=== PATIENT | female | born 1970 | race Caucasian/White ===

== ENCOUNTER 2019-05-14 00:20 | Emergency (ER) | payer MEDICAID ==
--- NOTE | 2019-05-14 00:37 | EDM.PDOC ---
ED HPI GENERAL MEDICAL PROBLEM - General Chief Complaint: Lower Extremity Injury/Pain Stated Complaint: Dizziness, fall, left hip pain Time Seen by Provider: 05/14/19 00:25 Source of Information: Reports: Patient, EMS History Limitations: Reports: No Limitations - History of Present Illness INITIAL COMMENTS - FREE TEXT/NARRATIVE: Patient states she was [place] felt a little dizzy miss a step falling landing on her left hip EMS was called to the scene. Patient states she could not get up with extreme hip pain 9 out of 10 sharp and stabbing. She denies any head injury LOC neck pain pelvic pain no numbness no tingling lightheadedness or chest pain shortness of breath no other complaints at this time. States she was traveling back To [place] Patient has a history of diabetes and A. fib hypertension Onset: Sudden Duration: Minutes: Location: Reports: Lower Extremity, Left Quality: Reports: Stabbing, Throbbing Severity: Severe Improves with: Reports: Rest Worsens with: Reports: Movement Left hip Pain Score (Numeric/FACES): 9 - Related Data Allergies Allergy/AdvReac Type Severity Reaction Status Date / Time ibuprofen Allergy Rash Verified 05/14/19 01:58 Penicillins Allergy Rash Verified 05/14/19 01:58 Home Meds: Home Meds metFORMIN HCl [Metformin HCl] 500 mg PO BID 05/14/19 [History] Review of Systems - Review of Systems Review Of Systems: See Below Constitutional: Reports: No Symptoms Eyes: Reports: No Symptoms Ears: Reports: No Symptoms Nose: Reports: No Symptoms Mouth/Throat: Reports: No Symptoms Respiratory: Reports: No Symptoms Cardiovascular: Denies: Chest Pain, Edema, Irregular Heart Rate, Lightheadedness , Palpitations, Syncope GI/Abdominal: Reports: No Symptoms Genitourinary: Reports: No Symptoms Musculoskeletal: Reports: Other (Left hip) Skin: Reports: No Symptoms Neurological: Reports: Dizziness (had a few sec dizziness when got up out of her seat then stepped down out of the bus ). Denies: Confusion, Headache, Numbness, Paresthesia, Tingling, Trouble Speaking, Difficulty Walking, Weakness Psychiatric: Reports: No Symptoms ED EXAM, GENERAL - Physical Exam Exam: See Below Exam Limited By: No Limitations General Appearance: Alert, WD/WN, No Apparent Distress Eye Exam: Bilateral Eye: EOMI, PERRL Ears: Normal External Exam, Normal Canal, Hearing Grossly Normal, Normal TMs Nose: Normal Inspection, Normal Mucosa, No Blood Throat/Mouth: Normal Inspection, Normal Lips, Normal Teeth, Normal Gums, Normal Oropharynx, Normal Voice, No Airway Compromise Head: Atraumatic, Normocephalic Neck: Normal Inspection, Supple, Non-Tender, Full Range of Motion, Other (No midline tenderness palpation full range of motion no distracting injury patient cleared via [facility]) Respiratory/Chest: No Respiratory Distress, Lungs Clear, Normal Breath Sounds, No Accessory Muscle Use. No: Respiratory Distress Cardiovascular: Normal Peripheral Pulses, Regular Rate, Rhythm, No Edema, No JVD GI/Abdominal: Normal Bowel Sounds, Soft, Non-Tender, No Organomegaly, Pelvis Stable, Other (Patient has tenderness to palpation on lateral compression of the hip over the trochanter area and with compressions of the pelvis no tenderness to palpation over the femur) Back Exam: Normal Inspection, Full Range of Motion Extremities: Normal Inspection, No Pedal Edema (Patient is neurovascularly intact with a positive dorsalis pedis posterior tibialis equal Refill she has equal soft touch sensation noted tenderness palpation over the foot and ankle tibia-fibula knee femur there is no edema noted over the femur patient refuses to move the left leg at the area of the hip secondary to pain), Normal Capillary Refill. No: Normal Range of Motion, Non-Tender Neurological: Alert, Oriented, CN II-XII Intact, Normal Cognition, No Motor/ Sensory Deficits Psychiatric: Normal Affect, Normal Mood Skin Exam: Warm, Dry, Intact, Normal Color, No Rash Course - Vital Signs Text/Narrative:: x-ray left hip questionable ramus fracture new versus old patient recheck states pain is much better she is actively Txt on the phone no acute disstress CT scan of the pelvis no acute findings patient is able to bear weight with a walker Patient is okay with being discharged Last Recorded V/S: Last Vital Signs Temp 36.8 C 05/14/19 00:25 Pulse 104 H 05/14/19 00:25 Resp 20 05/14/19 00:25 BP 144/100 H 05/14/19 00:25 Pulse Ox 92 L 05/14/19 00:25 - Orders/Labs/Meds Orders: Active Orders 24 hr Category Date Time Status Hip Min 2V or 3V Lt [CR] Stat Exams 05/14/19 00:31 Ordered Pelvis wo Cont [CT] Stat Exams 05/14/19 01:28 Ordered Meds: Medications Discontinued Medications Generic Name Dose Route Start Last Admin Trade Name Nilesh PRCharbel Reason Stop Dose Admin Hydromorphone HCl 1 mg 05/14/19 01:29 05/14/19 01:32 Dilaudid IVPUSH 05/14/19 01:30 1 mg ONETIME ONE Administration Ondansetron HCl 8 mg/ Sodium 104 mls @ 400 mls/hr 05/14/19 01:39 Chloride IV 05/14/19 01:54 ONETIME ONE Morphine Sulfate 2 mg 05/14/19 00:43 05/14/19 01:15 Morphine IVPUSH 05/14/19 00:44 2 mg ONETIME ONE Administration Ondansetron HCl 4 mg 05/14/19 00:44 05/14/19 01:05 Zofran IVPUSH 05/14/19 00:45 4 mg ONETIME ONE Administration Departure - Departure Time of Disposition: 02:20 Disposition: Home, Self-Care 01 Condition: Good Clinical Impression: Acute pain of left hip - Discharge Information *PRESCRIPTION DRUG MONITORING PROGRAM REVIEWED*: No *COPY OF PRESCRIPTION DRUG MONITORING REPORT IN PATIENT SOFÍA: No Instructions: Hip Pain Referrals: PCP,Unobtain [Primary Care Provider] - Forms: ED Department Discharge Additional Instructions: Apply ice to the area as tolerated 30-45 minutes on 30-45 minutes off you may take Tylenol Motrin [id number] as needed follow directions on the bottle or box Return to the emergency room if anything changes or gets worse - Problem List & Annotations (1) Acute pain of left hip SNOMED Code(s): 92964368 Code(s): M25.552 - PAIN IN LEFT HIP Status: Acute Current Visit: Yes - My Orders Last 24 Hours: My Active Orders 05/14/19 00:31 Hip Min 2V or 3V Lt [CR] Stat 05/14/19 01:28 Pelvis wo Cont [CT] Stat - Assessment/Plan Last 24 Hours: My Active Orders 05/14/19 00:31 Hip Min 2V or 3V Lt [CR] Stat 05/14/19 01:28 Pelvis wo Cont [CT] Stat
[2019-05-14] MEDS ORDERED: Morphine 2 MG/ML Syringe IVPUSH ONE (00:43)
[2019-05-14] MEDS ORDERED: Ondansetron 4 MG/2 ML SDV IVPUSH ONE (00:44)
[2019-05-14] MEDS ORDERED: HYDROmorphone 1 MG/ML Syringe IVPUSH ONE (01:29)
[2019-05-14] MEDS ORDERED: Ondansetron 8 MG in Sodium Chloride 0.9% 100 ML IV ONE (01:39)
--- NOTE | 2019-05-14 07:43 | CR ---
[id number] RAD/RAD Hip Left 2-3V EXAM: LEFT HIP 2 VIEWS INDICATION: Trauma with left hip pain. COMPARISON: None. DISCUSSION: This examination is limited by soft tissue attenuation. No fracture or dislocation is identified. IMPRESSION: 1. Negative limited examination. Teto Rosario MD 05/14/19 0740 Thank you for allowing us to participate in the care of your patient.
--- NOTE | 2019-05-14 08:22 | CT ---
[id number] CT/CT Pelvis WO IV EXAM: CT Pelvis WO IV INDICATION: Trauma, left hip pain and possible ramus fracture. COMPARISON: Radiograph same date. FINDINGS: Motion artifact mildly limits this assessment. No fracture or dislocation is identified. Mild subcutaneous edema in the dependent gluteal tissues bilaterally in the proximal left thigh. Intrauterine device within the endometrial canal. Mild distention of the bladder. Degenerative changes in the lower lumbar spine. Grade 1 L4-L5 spondylolisthesis. IMPRESSION: 1. No acute fracture or dislocation. Teto Rosario MD 05/14/19 0819 Thank you for allowing us to participate in the care of your patient.
== END 2019-05-14 02:48 | disposition home or self-care (01) ==
LOC: VM.ED 00:20
DX: M25.552 Pain in left hip (principal); Z88.0 Allergy status to penicillin; Z88.6 Allergy status to analgesic agent; Z79.84 Long term (current) use of oral hypoglycemic drugs
CPT/HCPCS: 51702; 72192; 96374; 96375; 99285-25; J1170; J2270; J2405